=== PATIENT | male | born 1995 | race Caucasian/White ===

== ENCOUNTER 2017-05-17 19:13 | Emergency (ER) | payer OTHER ==
[~2017-05-17] VITALS: Ht 188 cm; Wt 68.9 kg
[2017-05-17 20:22] VITALS: Ht 188 cm; Wt 68.9 kg
[2017-05-17 22:11] VITALS: BP 145/97
== END 2017-05-17 22:11 | disposition home or self-care (01) ==
LOC: ED 19:13
DX: S83.91XA Sprain of unspecified site of right knee, initial encounter (principal); X50.9XXA Other and unspecified overexertion or strenuous movements or postures, initial encounter; Y93.67 Activity, basketball; Y99.8 Other external cause status; Y92.89 Other specified places as the place of occurrence of the external cause